=== PATIENT | male | born 1960 | race Two or more races ===

== ENCOUNTER 2023-01-11 09:16 | Outpatient (CLI) | payer OTHER | END 2023-01-11 09:31 | disposition home or self-care (01) | LOC: SONOGRAMA 09:16 | PROVIDERS: ATTEND General Practice | DX: M25.532 Pain in left wrist (principal); M06.4 Inflammatory polyarthropathy ==

== ENCOUNTER 2023-06-28 08:58 | Outpatient (CLI) | payer OTHER | END 2023-06-28 09:03 | disposition home or self-care (01) | LOC: RAD 08:58 | PROVIDERS: ATTEND Specialist | DX: M19.049 Primary osteoarthritis, unspecified hand (principal); M65.319 Trigger thumb, unspecified thumb; M65.4 Radial styloid tenosynovitis [de Quervain]; M50.90 Cervical disc disorder, unspecified, unspecified cervical region; M75.30 Calcific tendinitis of unspecified shoulder; M19.022 Primary osteoarthritis, left elbow; M77.22 Periarthritis, left wrist; M00.89 Polyarthritis due to other bacteria ==